=== PATIENT | male | born 1950 | race Caucasian/White ===

== ENCOUNTER → 2016-04-20 | Outpatient (CLI) | payer MEDICARE, OTHER ==
[~2016-04-20] VITALS: Ht 185.4 cm; Wt 122.5 kg
[~2016-04-20] MED LIST: ALEV220C2 PO; FLEX10TA2 PO; LIDOCAINE 2% INJ 100 MG/5 ML SDV (FOR ANES.) As Ordered ONE; NS 1,000 ML IV SCH; PERCOCET PO; PRAV10TA PO; PREV30CA6 PO; PROPOFOL 200 MG/20 ML VIAL As Ordered ONE; REST0.05 OU
--- NOTE | 2016-04-20 12:51 | ROOR ---
Patient Name: Jose Lo Procedure Date: 04/20/2016 12:41 PM Date of : 1950 Age: 66 Room: [facility] Gender: Male Note Status: Finalized Procedure: Upper GI endoscopy Indications: Heartburn Providers: Nestor Hickey MD Referring MD: Carlton Romeo MD Requesting Provider: Medicines: Monitored Anesthesia Care Complications: No immediate complications. Procedure: Pre-Anesthesia Assessment: - The heart rate, respiratory rate, oxygen saturations, blood pressure, adequacy of pulmonary ventilation, and response to care were monitored throughout the procedure. The Endoscope was introduced through the mouth, and advanced to the second part of duodenum. The upper GI endoscopy was accomplished without difficulty. The patient tolerated the procedure well. Findings: The Z-line was regular and was found 41 cm from the incisors. A small hiatal hernia was present. No other significant abnormalities were identified in a careful examination of the stomach. The exam of the duodenum was otherwise normal. Impression: - Z-line regular, 41 cm from the incisors. - Small hiatal hernia. - No specimens collected. Recommendation: - Patient has a contact number available for emergencies. The signs and symptoms of potential delayed complications were discussed with the patient. Return to normal activities tomorrow. Written discharge instructions were provided to the patient. - Discharge patient to home. - Continue present medications. - Follow an antireflux regimen. - Return to referring physician. - The findings and recommendations were discussed with the patient's family. Nestor Hickey MD Nestor Hickey MD 04/20/2016 12:50:44 PM This report has been signed electronically. Number of Addenda: 0 Note Initiated On: 04/20/2016 12:41 PM Estimated Blood Loss: Estimated blood loss: none.
--- NOTE | 2016-04-20 13:27 | ROOR ---
Patient Name: Jose Lo Procedure Date: 04/20/2016 12:42 PM Date of : 1950 Age: 66 Room: [facility] Gender: Male Note Status: Finalized Procedure: Colonoscopy to Cecum + Hot Snare Polypectomy + Hemoclips Indications: Screening for colorectal malignant neoplasm, Last colonoscopy: 2005 Providers: Nestor Hickey MD Referring MD: Carlton Romeo MD Requesting Provider: Medicines: Monitored Anesthesia Care Complications: No immediate complications. Procedure: Pre-Anesthesia Assessment: - The heart rate, respiratory rate, oxygen saturations, blood pressure, adequacy of pulmonary ventilation, and response to care were monitored throughout the procedure. The Colonoscope was introduced through the anus and advanced to the cecum, identified by appendiceal orifice and ileocecal valve. The colonoscopy was performed without difficulty. The patient tolerated the procedure well. The quality of the bowel preparation was excellent. Findings: The perianal and digital rectal examinations were normal. Non-bleeding internal hemorrhoids were found during retroflexion. The hemorrhoids were small and Grade I (internal hemorrhoids that do not prolapse). A medium polyp was found at 10 cm proximal to the anus. The polyp was pedunculated. The polyp was removed with a hot snare. Resection and retrieval were complete. Two sessile polyps were found in the mid ascending colon. The polyps were large in size. These polyps were removed with a hot snare. Resection and retrieval were complete. To prevent bleeding after the polypectomy, six hemostatic clips were successfully placed (MR conditional). There was no bleeding at the end of the procedure. The exam was otherwise without abnormality on direct and retroflexion views. Impression: - Non-bleeding internal hemorrhoids. - One medium polyp at 10 cm proximal to the anus, removed with a hot snare. Resected and retrieved. - Two large polyps in the mid ascending colon, removed with a hot snare. Resected and retrieved. Clips (MR conditional) were placed. - The examination was otherwise normal on direct and retroflexion views. - The exam was otherwise normal to the cecum. Recommendation: - Patient has a contact number available for emergencies. The signs and symptoms of potential delayed complications were discussed with the patient. Return to normal activities tomorrow. Written discharge instructions were provided to the patient. - Discharge patient to home. - Continue present medications. - Await pathology results. - Telephone GI clinic for pathology results in 1 week. - Repeat colonoscopy for surveillance based on pathology results. - Return to referring physician. - The findings and recommendations were discussed with the patient's family. Nestor Hickey MD Nestor Hickey MD 04/20/2016 1:27:16 PM This report has been signed electronically. Number of Addenda: 0 Note Initiated On: 04/20/2016 12:42 PM Estimated Blood Loss: Estimated blood loss: none.
[2016-04-20 13:48] VITALS: BP 129/76
== END ==
LOC: M OPP 11:24
PROVIDERS: ATTEND Internal Medicine Gastroenterology
DX: Z12.11 Encounter for screening for malignant neoplasm of colon (principal); K64.0 First degree hemorrhoids; D12.2 Benign neoplasm of ascending colon; R12 Heartburn; K44.9 Diaphragmatic hernia without obstruction or gangrene

== ENCOUNTER → 2016-05-11 | Outpatient (REF) | payer MEDICARE, OTHER ==
[~2016-05-11] MED LIST changes: -LIDOCAINE 2% INJ 100 MG/5 ML SDV (FOR ANES.) As Ordered ONE; -NS 1,000 ML IV SCH; -PROPOFOL 200 MG/20 ML VIAL As Ordered ONE
[2016-05-13 00:06] LABS: FREE KAPPA LIGHT CHAINS SERUM 640.61 mg/L (3.30-19.40); FREE LAMBDA LIGHT CHAINS SERUM 9.62 mg/L (5.71-26.30); KAPPA/LAMBDA RATIO SERUM 66.59 (0.26-1.65)
[2016-05-14 13:08] LABS: ALBUMIN 3.97 GM/DL (3.29-5.55); ALBUMIN % 56.7 % (55.8-66.1); GAMMA GLOBULIN % 8.9 % (11.1-18.8)
== END ==
LOC: M LAB REF 12:58
PROVIDERS: ATTEND Internal Medicine Medical Oncology
DX: D47.2 Monoclonal gammopathy (principal)

== ENCOUNTER → 2016-11-23 | Outpatient (REF) | payer MEDICARE, OTHER ==
[~2016-11-23] MED LIST changes: -PRAV10TA PO; +PRAV10TA4 PO
[2016-11-23 19:50] LABS: IMMUNOGLOBULIN G 628 MG/DL (681-1648); IMMUNOGLOBULIN M 106 MG/DL (40-230); TOTAL PROTEIN 6.9 GM/DL (6.4-8.2)
[2016-11-26 00:07] LABS: FREE LAMBDA LIGHT CHAINS SERUM 9.4 mg/L (5.7-26.3); KAPPA/LAMBDA RATIO SERUM 43.09 (0.26-1.65)
[2016-11-26 13:24] LABS: ALBUMIN 3.94 GM/DL (3.29-5.55); ALBUMIN % 57.1 % (55.8-66.1); GAMMA GLOBULIN % 8.7 % (11.1-18.8)
== END ==
LOC: M LAB REF 16:23
PROVIDERS: ATTEND Internal Medicine Medical Oncology
DX: C91.40 Hairy cell leukemia not having achieved remission (principal); D47.2 Monoclonal gammopathy

== ENCOUNTER → 2017-01-04 | Outpatient (CLI) | payer MEDICARE, OTHER ==
--- NOTE | 2017-01-04 10:36 | REP ---
PA and lateral chest: There are no comparisons. The lung wells are clear. The cardiac size is normal The bev, mediastinum, and bony thorax are unremarkable. Impression: Negative PA and lateral chest. Signed by Dwayne Hernandez MD 01/04/2017 10:28 A
== END ==
LOC: M ADAMS 10:14
PROVIDERS: ATTEND Physician Assistant
DX: R05 Cough (principal); J20.9 Acute bronchitis, unspecified

== ENCOUNTER → 2017-05-24 | Outpatient (REF) | payer MEDICARE, OTHER ==
[2017-05-24 17:48] LABS: URINE TOTAL PROTEIN 12.7 MG/DL (0-12)
[2017-05-24 17:56] LABS: IMMUNOGLOBULIN G 670 MG/DL (681-1648); IMMUNOGLOBULIN M 118 MG/DL (40-230); TOTAL PROTEIN 7.1 GM/DL (6.4-8.2)
[2017-05-25 08:54] LABS: ALBUMIN 4.08 GM/DL (3.29-5.55); ALBUMIN % 57.5 % (55.8-66.1); ALPHA-1-GLOBULIN % 3.8 % (2.9-4.9); ALPHA-1-GLOBULINS 0.27 GM/DL (0.17-0.41); ALPHA-2-GLOBULINS 0.55 GM/DL (0.42-0.99); ALPHA-2-GLOBULINS % 7.7 % (7.1-11.8); BETA-1-GLOBULINS 0.39 GM/DL (0.28-0.60); BETA-1-GLOBULINS % 5.5 % (4.7-7.2); BETA-2-GLOBULINS 1.22 GM/DL (0.19-0.55); BETA-2-GLOBULINS % 17.2 % (3.2-6.5); GAMMA GLOBULIN % 8.3 % (11.1-18.8); GAMMA GLOBULINS 0.59 GM/DL (0.65-1.58)
[2017-05-27 00:06] LABS: FREE KAPPA LIGHT CHAINS SERUM 424.5 mg/L (3.3-19.4); FREE LAMBDA LIGHT CHAINS SERUM 6.8 mg/L (5.7-26.3); KAPPA/LAMBDA RATIO SERUM 62.43 (0.26-1.65)
== END ==
LOC: M LAB REF 16:33
DX: D47.2 Monoclonal gammopathy (principal); M10.9 Gout, unspecified; E78.5 Hyperlipidemia, unspecified
CPT/HCPCS: 84165

== ENCOUNTER → 2017-05-24 | Outpatient (REF) | payer MEDICARE, OTHER ==
[2017-05-24 18:56] LABS: URIC ACID 6.9 MG/DL (3.5-7.2)
== END ==
LOC: M LAB REF 17:26
DX: M10.9 Gout, unspecified (principal); E78.5 Hyperlipidemia, unspecified

== ENCOUNTER 2017-06-09 07:56 | Day surgery (SDC) | payer MEDICARE, OTHER ==
[~2017-06-09 07:56] MED LIST changes: -ALEV220C2 PO; -FLEX10TA2 PO; +LIDOCAINE 2% INJ 100 MG/5 ML SDV (FOR ANES.) As Ordered; -PERCOCET PO; -PRAV10TA4 PO; -PREV30CA6 PO; +PROPOFOL 200 MG/20 ML VIAL As Ordered; -REST0.05 OU
[2017-06-09] MEDS: NS 1,000 ML IV (08:15)
[2017-06-09] MEDS ORDERED: PROPOFOL 200 MG/20 ML VIAL As Ordered (09:27)
== END 2017-06-09 10:35 | disposition home or self-care (01) ==
LOC: M OPP 07:56
DX: D12.9 Benign neoplasm of anus and anal canal (principal); D12.3 Benign neoplasm of transverse colon; D12.2 Benign neoplasm of ascending colon; Z86.010 Personal history of colon polyps; G47.33 Obstructive sleep apnea (adult) (pediatric); E78.00 Pure hypercholesterolemia, unspecified; K21.9 Gastro-esophageal reflux disease without esophagitis; Z79.899 Other long term (current) drug therapy; Z85.6 Personal history of leukemia; Z87.81 Personal history of (healed) traumatic fracture; Z09 Encounter for follow-up examination after completed treatment for conditions other than malignant neoplasm
CPT/HCPCS: 45385

== ENCOUNTER → 2017-08-31 | Outpatient (REF) | payer MEDICARE, OTHER, BC ==
[2017-08-31 13:44] LABS: IMMUNOGLOBULIN G 746 MG/DL (681-1648); IMMUNOGLOBULIN M 115 MG/DL (40-230); TOTAL PROTEIN 7.2 GM/DL (6.4-8.2)
[2017-08-31 13:47] LABS: URINE TOTAL PROTEIN 14.8 MG/DL (0-12)
[2017-09-01 13:24] LABS: ALBUMIN % 57.4 % (55.8-66.1); ALPHA-1-GLOBULIN % 3.4 % (2.9-4.9)
[2017-09-01 13:25] LABS: ALBUMIN 4.13 GM/DL (3.29-5.55); ALPHA-1-GLOBULINS 0.24 GM/DL (0.17-0.41); ALPHA-2-GLOBULINS 0.56 GM/DL (0.42-0.99); ALPHA-2-GLOBULINS % 7.8 % (7.1-11.8); BETA-1-GLOBULINS % 5.5 % (4.7-7.2); BETA-2-GLOBULINS 1.24 GM/DL (0.19-0.55); BETA-2-GLOBULINS % 17.2 % (3.2-6.5); GAMMA GLOBULIN % 8.7 % (11.1-18.8); GAMMA GLOBULINS 0.63 GM/DL (0.65-1.58)
[2017-09-02 13:00] LABS: UPEP INTERPRETATION M-SPIKE IN GAMMA; URINE VOLUME RANDOM ML
[2017-09-03 00:06] LABS: FREE KAPPA LIGHT CHAINS SERUM 469.5 mg/L (3.3-19.4); FREE LAMBDA LIGHT CHAINS SERUM 8.3 mg/L (5.7-26.3); KAPPA/LAMBDA RATIO SERUM 56.57 (0.26-1.65)
== END ==
LOC: M LAB REF 12:58
DX: C91.00 Acute lymphoblastic leukemia not having achieved remission (principal); D47.2 Monoclonal gammopathy
CPT/HCPCS: 84165

== ENCOUNTER → 2017-08-31 | Outpatient (REF) | payer MEDICARE, OTHER, BC ==
[2017-08-31 10:21] LABS: URINE TOTAL PROTEIN 9.8 MG/DL (0-12)
[2017-09-02 12:59] LABS: UPEP INTERPRETATION M-SPIKE IN GAMMA; URINE VOLUME 2250 ML
== END ==
LOC: M LAB REF 09:38
DX: D47.2 Monoclonal gammopathy (principal)

== ENCOUNTER 2018-02-23 11:44 | Emergency (ER) | payer OTHER, MEDICARE, BC | END 2018-02-23 12:45 | disposition home or self-care (01) | LOC: M ED 11:44 | DX: S63.642A Sprain of metacarpophalangeal joint of left thumb, initial encounter (principal); M19.042 Primary osteoarthritis, left hand; X50.1XXA Overexertion from prolonged static or awkward postures, initial encounter; Y92.89 Other specified places as the place of occurrence of the external cause; Y99.0 Civilian activity done for income or pay; M54.9 Dorsalgia, unspecified; K21.9 Gastro-esophageal reflux disease without esophagitis; Z79.899 Other long term (current) drug therapy | CPT/HCPCS: 73140 ==

== ENCOUNTER → 2019-04-03 | Outpatient (CLI) | payer MEDICARE, OTHER ==
[~2019-04-03] MED LIST changes: +ALEV220C2 PO; +CELE1CAP7 PO; +FLEX10TA2 PO; +LANS30CA; -LIDOCAINE 2% INJ 100 MG/5 ML SDV (FOR ANES.) As Ordered; +MULT1TAB10 PO; +OXYC1TAB23 PO; +PRAV10TA4 PO; +PREV30CA6 PO; -PROPOFOL 200 MG/20 ML VIAL As Ordered; +REST0.05 OP; +REST0.05 OU
--- NOTE | 2019-04-03 16:01 | REP ---
Pelvis survey: Comparison is 01/25/2014. AP and lateral skull: There are no lytic or destructive lesions. Next Cervical spine AP and lateral views: There are no lytic or destructive lesions. The small lucent lesion suspected on the prior study is no longer identified on the current examination. There is multilevel degenerative disc disease and facet osteoarthritis. Thoracic spine AP and lateral views: There are no lytic or destructive lesions. There is degenerative disc disease throughout the thoracic spine. Lumbar spine AP and lateral views: There are no lytic or destructive changes. There is grade 1 compression deformity of the L3 vertebral body, unchanged. There is mild to moderate degenerative disc disease throughout the lumbar spine, unchanged. AP pelvis: There are no lytic or destructive changes. The sacroiliac articulations and hip articulations are unremarkable. There are phleboliths on the left. Bilateral humeri: There are no lytic or destructive changes. Mineralization is normal. Bilateral semi: There are no lytic or destructive changes. Mineralization is normal. Electronically Signed by Dwayne Hernandez MD 04/03/2019 03:52 P
== END ==
LOC: M RAD 13:01
PROVIDERS: ATTEND Internal Medicine Hematology & Oncology
DX: C95.90 Leukemia, unspecified not having achieved remission (principal)

== ENCOUNTER → 2019-04-14 | Outpatient (REF) | payer MEDICARE, OTHER ==
[2019-04-14 11:37] LABS: CHOLESTEROL RISK RATIO 3.422 (<5); PROSTATIC SPECIFIC AG MONITOR 6.66 NG/ML (< 4.00); URIC ACID 7.5 MG/DL (3.5-7.2)
== END ==
LOC: M LAB REF 10:14
PROVIDERS: ATTEND Family Medicine
DX: E78.5 Hyperlipidemia, unspecified (principal); N40.1 Benign prostatic hyperplasia with lower urinary tract symptoms; M10.9 Gout, unspecified

== ENCOUNTER → 2019-04-21 | Outpatient (CLI) | payer MEDICARE, OTHER ==
--- NOTE | 2019-04-21 09:02 | REP ---
Clinical: Erythrocyte ptosis. Technique: Real time hoover scale and color evaluation using curved array transducer. Findings: Liver is increased echogenicity with decreased through transmission suggesting fatty infiltration. No focal hepatic lesion identified. The pancreas is incompletely evaluated due to interposed bowel gas but visualized portions appear normal. The spleen demonstrates few parenchymal calcifications and measures 11.2 x 5.3 x 10.3 cm, but without significant focal pathology. Evidence of prior cholecystectomy. No biliary ductal dilatation is appreciated and the common bile duct measures 4.7 mm diameter. The bilateral kidneys are normal in reniform shape without hydronephrosis. Right kidney measures 12.2 x 6.1 x 6.3 cm. Left kidney measures 12.0 x 7.6 x 6.4 cm. No ascites. Impression: 1. Hepatic steatosis. 2. Evidence of prior cholecystectomy. 3. No further acute abdominal pathology by ultrasound evaluation. Electronically Signed by Franklyn Herrera MD 04/21/2019 08:54 A
== END ==
LOC: M RAD 08:11
PROVIDERS: ATTEND Internal Medicine Hematology & Oncology
DX: C91.40 Hairy cell leukemia not having achieved remission (principal)

== ENCOUNTER → 2019-04-26 | Outpatient (CLI) | payer MEDICARE, OTHER ==
[~2019-04-26] MED LIST changes: +TAMS1CAP17 PO
--- NOTE | 2019-04-26 11:34 | REP ---
Whole body radionuclide bone scan: History: Hairy-cell leukemia. Evaluation. Elevated alkaline phosphatase. Comparison bone survey April 03, 2019. Technique: 21.9 mCi technetium 99m MDP is injected and standard whole body bone scanning is acquired. Scintigraphic findings: Anterior and posterior whole body images demonstrate normal distribution of skeletal tracer with uptake in bilateral kidneys and in the urinary bladder. There is osteoarthritic facet uptake in the mid cervical spine on the right corresponding with facet hypertrophy seen radiographically at this level. There is no evidence to suggest skeletal metastatic disease. Impression: Negative radionuclide whole-body bone scan. Electronically Signed by Abner Sales MD 04/26/2019 04:25 P
== END ==
LOC: M RAD 07:35
PROVIDERS: ATTEND Internal Medicine Hematology & Oncology
DX: C91.40 Hairy cell leukemia not having achieved remission (principal)
CPT/HCPCS: 78306; A9503

== ENCOUNTER → 2019-08-03 | Outpatient (REF) | payer MEDICARE, OTHER ==
[2019-08-03 15:24] LABS: BASO % 0.7 % (0.0-1.0); EOS # 0.2 10^3/uL (0.0-0.5); EOS % 3.5 % (0.0-3.0); HEMATOCRIT 50.5 % (42.0-52.0); HEMOGLOBIN 16.9 g/dl (13.5-17.5); LYMPH # 2.1 10^3/uL (1.5-5.0); LYMPH % 36.5 % (24.0-44.0); MEAN CORPUSCULAR HEMOGLOBIN 32.6 pg (27.0-33.0); MEAN CORPUSCULAR HGB CONC 33.5 g/dl (32.0-36.5); MEAN CORPUSCULAR VOLUME 97.3 fl (80.0-96.0); MONO # 0.7 10^3/uL (0.0-0.8); MONO % 11.6 % (0.0-5.0); NEUTROPHILS # 2.7 10^3/uL (1.5-8.5); NEUTROPHILS % 47.5 % (36.0-66.0); PLATELET COUNT, AUTOMATED 108 10^3/uL (150-450); RED BLOOD COUNT 5.19 10^6/uL (4.30-6.10); WHITE BLOOD COUNT 5.8 10^3/uL (4.0-10.0)
[2019-08-03 16:01] LABS: THYROID STIMULATING HORMONE 0.779 uIU/ML (0.358-3.740); TOTAL PROTEIN 6.8 GM/DL (6.4-8.2)
[2019-08-04 16:08] LABS: FREE KAPPA LIGHT CHAINS SERUM 453.3 mg/L (3.3-19.4); FREE LAMBDA LIGHT CHAINS SERUM 6.4 mg/L (5.7-26.3); KAPPA/LAMBDA RATIO SERUM 70.83 (0.26-1.65)
== END ==
LOC: M LABDRWAD 12:47
PROVIDERS: ATTEND Internal Medicine Hematology & Oncology
DX: E21.5 Disorder of parathyroid gland, unspecified (principal); Z79.899 Other long term (current) drug therapy

== ENCOUNTER → 2020-02-06 | Outpatient (REF) | payer MEDICARE, OTHER ==
[~2020-02-06] MED LIST changes: +D31000TA2 PO
[2020-02-06 11:42] LABS: ALBUMIN 3.6 GM/DL (3.2-5.2); ALT/SGPT 21 U/L (12-78); BILIRUBIN,TOTAL 0.8 MG/DL (0.2-1.0); BLOOD UREA NITROGEN 18 MG/DL (7-18); CALCIUM LEVEL 9.3 MG/DL (8.8-10.2); CARBON DIOXIDE LEVEL 28 MEQ/L (21-32); CHLORIDE LEVEL 107 MEQ/L (98-107); CHOLESTEROL LEVEL 133 MG/DL (<200); CHOLESTEROL RISK RATIO 2.607 (<5); CREATININE FOR GFR 1.19 MG/DL (0.70-1.30); GLOMERULAR FILTRATION RATE > 60.0 (>49); GLUCOSE, FASTING 100 MG/DL (70-100); HDL CHOLESTEROL 51 MG/DL (>40); LDL CHOLESTEROL 67 MG/DL (<100); NON-HDL-C 82 MG/DL; POTASSIUM SERUM 4.1 MEQ/L (3.5-5.1); PROSTATIC SPECIFIC AG MONITOR 6.73 NG/ML (< 4.00); SODIUM LEVEL 140 MEQ/L (136-145); TOTAL PROTEIN 6.8 GM/DL (6.4-8.2); TRIGLYCERIDES LEVEL 75 MG/DL (<150); URIC ACID 7.5 MG/DL (3.5-7.2)
[2020-02-06 11:46] LABS: PTH INTACT 91.8 PG/ML (18.5-88.0)
== END ==
LOC: M LAB REF 10:52
PROVIDERS: ATTEND Family Medicine
DX: E83.52 Hypercalcemia (principal); R97.20 Elevated prostate specific antigen [PSA]; E78.5 Hyperlipidemia, unspecified; M10.9 Gout, unspecified

== ENCOUNTER → 2020-08-02 | Outpatient (CLI) | payer MEDICARE, OTHER ==
[~2020-08-02] MED LIST changes: -LANS30CA; +LANS30CA PO; +PRAV10TA3
== END ==
LOC: M LABSMTC 11:21
PROVIDERS: ATTEND Anesthesiology
DX: Z01.812 Encounter for preprocedural laboratory examination (principal); Z11.52 Encounter for screening for COVID-19

== ENCOUNTER 2020-08-07 08:57 | Day surgery (SDC) | payer MEDICARE, OTHER ==
[~2020-08-07] VITALS: Ht 185.4 cm; Wt 113.4 kg
[~2020-08-07 08:57] MED LIST changes: +NS 1,000 ML IV ONE
[2020-08-07] MEDS ORDERED: LIDOCAINE 2% 100MG/5ML SDV (FOR ANES.) As Ordered ONE (11:43)
[2020-08-07] MEDS ORDERED: propofoL 200 MG/20 ML VIAL As Ordered ONE ×2 (11:43→12:03)
[2020-08-07] MEDS ORDERED: fentaNYL 100 MCG/2 ML INJECTION (J3010) As Ordered ONE (11:43)
--- NOTE | 2020-08-07 12:04 | ROOR ---
Patient Name: Jose Lo Procedure Date: 08/07/2020 11:52 AM Date of : 1950 Age: 70 Room: [facility] Gender: Male Note Status: Finalized Procedure: Upper Endoscopy + Biopsies Indications: Heartburn, Exclusion of Perez's esophagus Providers: Nestor Hickey MD Referring MD: Carlton Romeo MD Requesting Provider: Medicines: Monitored Anesthesia Care Complications: No immediate complications. Procedure: Pre-Anesthesia Assessment: - The heart rate, respiratory rate, oxygen saturations, blood pressure, adequacy of pulmonary ventilation, and response to care were monitored throughout the procedure. The Endoscope was introduced through the mouth, and advanced to the second part of duodenum. The upper GI endoscopy was accomplished without difficulty. The patient tolerated the procedure well. Findings: The Z-line was regular and was found 45 cm from the incisors. Multiple biopsies were obtained with cold forceps for evaluation to rule out Perez's Esophagus randomly at the gastroesophageal junction. No other significant abnormalities were identified in a careful examination of the stomach. The exam of the duodenum was otherwise normal. Impression: - Z-line regular, 45 cm from the incisors. - Multiple biopsies were obtained at the gastroesophageal junction. - The examination was otherwise normal. Recommendation: - Patient has a contact number available for emergencies. The signs and symptoms of potential delayed complications were discussed with the patient. Return to normal activities tomorrow. Written discharge instructions were provided to the patient. - High fiber diet. - Discharge patient to home. - Follow an antireflux regimen. - Continue present medications. - Await pathology results. - Telephone GI clinic for pathology results in 1 week. - Return to referring physician. - The findings and recommendations were discussed with the patient's family. Procedure Code(s): --- Professional --- 64158, Esophagogastroduodenoscopy, flexible, transoral; with biopsy, single or multiple Diagnosis Code(s): --- Professional --- R12, Heartburn CPT copyright 2019 [employer]. All rights reserved. The codes documented in this report are preliminary and upon venetian blind maker review may be revised to meet current compliance requirements. Nestor Hickey MD Nestor Hickey MD 08/07/2020 12:04:40 PM Electronically signed by Nestor Hickey MD Number of Addenda: 0 Note Initiated On: 08/07/2020 11:52 AM Estimated Blood Loss: Estimated blood loss: none.
--- NOTE | 2020-08-07 12:17 | ROOR ---
Patient Name: Jose Lo Procedure Date: 08/07/2020 11:52 AM Date of : 1950 Age: 70 Room: [facility] Gender: Male Note Status: Finalized Procedure: Total Colonoscopy to Cecum Indications: High risk colon cancer surveillance: Personal history of colonic polyps, Last colonoscopy: 2017 Providers: Nestor Hickey MD Referring MD: Carlton Romeo MD Requesting Provider: Medicines: Monitored Anesthesia Care Complications: No immediate complications. Procedure: Pre-Anesthesia Assessment: - The heart rate, respiratory rate, oxygen saturations, blood pressure, adequacy of pulmonary ventilation, and response to care were monitored throughout the procedure. The Colonoscope was introduced through the anus and advanced to the cecum, identified by appendiceal orifice and ileocecal valve. The colonoscopy was performed without difficulty. The patient tolerated the procedure well. The quality of the bowel preparation was excellent. Findings: The perianal and digital rectal examinations were normal. No other significant abnormalities were identified in a careful examination of the remainder of the colon. The exam was otherwise without abnormality. Impression: - The examination was otherwise normal. - No specimens collected. - The exam was otherwise normal to the cecum. Recommendation: - Patient has a contact number available for emergencies. The signs and symptoms of potential delayed complications were discussed with the patient. Return to normal activities tomorrow. Written discharge instructions were provided to the patient. - High fiber diet. - Discharge patient to home. - Continue present medications. - Repeat colonoscopy in 5 years for surveillance. - Return to referring physician. - The findings and recommendations were discussed with the patient's family. Procedure Code(s): --- Professional --- G0105, Colorectal cancer screening; colonoscopy on individual at high risk Diagnosis Code(s): --- Professional --- Z86.010, Personal history of colonic polyps CPT copyright 2019 [employer]. All rights reserved. The codes documented in this report are preliminary and upon coding technician review may be revised to meet current compliance requirements. Nestor Hickey MD Nestor Hickey MD 08/07/2020 12:16:23 PM Electronically signed by Nestor Hickey MD Number of Addenda: 0 Note Initiated On: 08/07/2020 11:52 AM Estimated Blood Loss: Estimated blood loss: none.
[2020-08-07 12:40] VITALS: BP 116/71
== END 2020-08-07 12:51 | disposition home or self-care (01) ==
LOC: M OPP 08:57
PROVIDERS: ATTEND Internal Medicine Gastroenterology
DX: Z12.11 Encounter for screening for malignant neoplasm of colon (principal); Z86.010 Personal history of colon polyps; R12 Heartburn; Z79.899 Other long term (current) drug therapy; Z88.0 Allergy status to penicillin
CPT/HCPCS: 43239; 88305; G0105; J3010

== ENCOUNTER → 2020-08-08 | Outpatient (REF) | payer MEDICARE, OTHER ==
[~2020-08-08] MED LIST changes: -NS 1,000 ML IV ONE
== END ==
LOC: M LAB REF 16:02
PROVIDERS: ATTEND Family Medicine
DX: R97.20 Elevated prostate specific antigen [PSA] (principal)

== ENCOUNTER → 2020-12-04 | Outpatient (REF) | payer MEDICARE, OTHER ==
[~2020-12-04] MED LIST changes: -REST0.05 OP
== END ==
LOC: M SMT PRO 09:33
PROVIDERS: ATTEND Urology
DX: C61 Malignant neoplasm of prostate (principal)
CPT/HCPCS: 55700; 76942; G0416

== ENCOUNTER → 2020-12-11 | Outpatient (REF) | payer MEDICARE, OTHER ==
[2020-12-11 16:36] LABS: CALCIUM LEVEL 10.3 MG/DL (8.8-10.2); CREATININE FOR GFR 1.39 MG/DL (0.70-1.30); GLOMERULAR FILTRATION RATE 53.8 (>42)
== END ==
LOC: M LABSMT 13:27 → M SFHCADAM 13:29
PROVIDERS: ATTEND Urology
DX: C61 Malignant neoplasm of prostate (principal)

== ENCOUNTER → 2021-01-06 | Outpatient (CLI) | payer MEDICARE, OTHER ==
[~2021-01-06] MED LIST changes: +ISOVUE-370 76% 100ML VIAL As Ordered ONE
--- NOTE | 2021-01-06 13:14 | REP ---
INDICATION: PROSTATE CA-NM FIRST. COMPARISON: 03/19/2010 TECHNIQUE: Bolus 100 mL Isovue 370 scanning through the abdomen and pelvis with coronal and sagittal reconstructions and 1 delayed axial abdominal scan. Bone windows are reviewed for each lies level. FINDINGS: CT abdomen: Lung bases show some minor dependent atelectatic changes without acute infiltrate, pleural effusion or parenchymal mass. Heart size not grossly enlarged. There is no pericardial thickening or effusion. Is a small hiatal hernia evident. There is no hepatosplenomegaly, focal hepatic or splenic mass nor intrahepatic biliary dilatation. Few tiny calcifications in the spleen again noted from old granulomatous disease. Gallbladder surgically absent. No calcifications visible in the common duct pancreas is unremarkable. Adrenal glands are without mass or significant nodularity. Kidneys show symmetric size, cortical thickness and contour no solid mass is identified. Tiny cyst seen in the lower pole left kidney not visible on the previous noncontrast scan. No definite renal stones. The aorta has few scattered calcifications but no aneurysm or dissection. There is no periaortic other retroperitoneal or mesenteric pathologic sized lymphadenopathy. Lung window review of all CT slices shows no evidence for perforation or free air in the abdomen or pelvis. No splenomegaly. Abdominal portion of the colon shows a few scattered diverticula without signs of colitis or diverticulitis. There is no inflammatory change about the cecum. Collecting systems and ureters without dilatation or stone. There is no ventral abdominal wall hernia. Stomach and small bowel loops unremarkable. Bone windows show some chronic at superior endplate depression of L3 stable. Lower thoracic and lumbar spondylosis noted. There is no spondylolysis or spondylolisthesis. Some facet arthropathy lower lumbar spine evident. Visualized ribs are without fracture or focal lesion. CT pelvis: The sacrum, pelvis and hips show some degenerative changes without destructive lesions or fractures peer bladder partially filled it with a small urachal remnant extending superiorly for a few cm but no urachal mass or definite bladder wall mass. Prostate is enlarged with a transverse diameter 6.1 cm and indenting the bladder base posteriorly. 10 years ago the diameter transverse was 4.8 cm. There is no ventral or inguinal hernia, pathologic sized inguinal adenopathy or pelvic lymphadenopathy. The distal left colon and sigmoid without acute finding. Small bowel loops in the deep pelvis unremarkable. IMPRESSION: 1. Enlarged prostate indenting bladder base with a maximum transverse diameter of the 6.1 cm. This is enlarged compared to the study 10 years ago which had a transverse diameter of 4.8 cm. Small urachal remnant anterior superior bladder without gross mass. Slight bladder wall thickening overall. 2. No discrete bony lesion. There are degenerative changes throughout the thoracic and lumbar spine and old, stable superior endplate depression L3. No acute bony finding. 3. Prior cholecystectomy. Solid organs in the upper abdomen without acute finding. No abdominal or pelvic lymphadenopathy, ventral or inguinal hernia or other acute finding. Few scattered diverticula in the colon without diverticulitis or colitis. <Electronically signed by Jose Maldonado > 01/06/21 1318
--- NOTE | 2021-01-06 13:57 | REP ---
INDICATION: PROSTATE CA-CT AFTER. COMPARISON: 04/26/2019. TECHNIQUE/RADIOTRACER AND DOSE: Following the intravenous administration of 22.0mCi technetium 99 M MDP, patient's whole-body is imaged in multiple projections. FINDINGS: There is mild arthritic uptake in the right cervical facet joints. There is mild arthritic uptake at the sternal clavicular joints. There is no compelling scintigraphic evidence of osseous metastases. Renal and bladder activity are seen. IMPRESSION: No significant change when compared to the prior study. No compelling scintigraphic evidence of osseous metastases. <Electronically signed by Dwayne Bustamante > 01/06/21 1334
== END ==
LOC: M RAD 09:51
PROVIDERS: ATTEND Urology
DX: C61 Malignant neoplasm of prostate (principal)
CPT/HCPCS: 74177; 78306; A9503; Q9967

== ENCOUNTER → 2021-02-10 | Outpatient (CLI) | payer MEDICARE, OTHER ==
[~2021-02-10] MED LIST changes: -ISOVUE-370 76% 100ML VIAL As Ordered ONE
--- NOTE | 2021-02-10 09:48 | REP ---
INDICATION: PROSTATE CANCER, PREOP TESTING. COMPARISON: PA and lateral chest, 01/04/2017. TECHNIQUE: Upright PA and lateral chest images were obtained. FINDINGS: The lungs are clear. The heart borders mediastinum and pulmonary vascular pattern are normal. The upper abdominal bowel gas pattern is normal. There is mild dextroscoliosis of the thoracic spine. IMPRESSION: No evidence of acute cardiopulmonary pathology. No significant change. <Electronically signed by Derek Sanchez > 02/10/21 0903
== END ==
LOC: M ADAMS 09:21
PROVIDERS: ATTEND Urology
DX: Z01.818 Encounter for other preprocedural examination (principal); C61 Malignant neoplasm of prostate

== ENCOUNTER → 2021-02-10 | Outpatient (REF) | payer MEDICARE, OTHER ==
[2021-02-10 14:42] LABS: HEMATOCRIT 49.9 % (42.0-52.0); HEMOGLOBIN 16.5 g/dl (13.5-17.5); MEAN CORPUSCULAR HEMOGLOBIN 31.9 pg (27.0-33.0); MEAN CORPUSCULAR HGB CONC 33.1 g/dl (32.0-36.5); MEAN CORPUSCULAR VOLUME 96.5 fl (80.0-96.0); PLATELET COUNT, AUTOMATED 126 10^3/uL (150-450); RED BLOOD COUNT 5.17 10^6/uL (4.30-6.10); WHITE BLOOD COUNT 7.2 10^3/uL (4.0-10.0)
[2021-02-10 14:51] LABS: INR 1.1; PROTHROMBIN TIME 14.6 SECONDS (12.7-14.5)
[2021-02-10 14:52] LABS: PARTIAL THROMBOPLASTIN TIME 29.6 SECONDS (25.9-37.0)
[2021-02-10 15:04] LABS: CALCIUM LEVEL 10.4 MG/DL (8.8-10.2); CREATININE FOR GFR 1.29 MG/DL (0.70-1.30); GLOMERULAR FILTRATION RATE 58.6 (>42); POTASSIUM SERUM 4.1 MEQ/L (3.5-5.1)
== END ==
LOC: M LABSMT 09:20 → M SFHCADAM 09:28
PROVIDERS: ATTEND Urology
DX: Z01.818 Encounter for other preprocedural examination (principal); C61 Malignant neoplasm of prostate; Z79.01 Long term (current) use of anticoagulants

== ENCOUNTER → 2021-02-25 | Outpatient (REF) | payer MEDICARE, OTHER ==
[2021-02-25 13:09] LABS: HEMATOCRIT 49.3 % (42.0-52.0); HEMOGLOBIN 16.4 g/dl (13.5-17.5); MEAN CORPUSCULAR HGB CONC 33.3 g/dl (32.0-36.5); MEAN CORPUSCULAR VOLUME 96.3 fl (80.0-96.0); PLATELET COUNT, AUTOMATED 107 10^3/uL (150-450); RED BLOOD COUNT 5.12 10^6/uL (4.30-6.10); WHITE BLOOD COUNT 5.9 10^3/uL (4.0-10.0)
[2021-02-25 13:37] LABS: INR 1.05; PROTHROMBIN TIME 14.2 SECONDS (12.7-14.5)
[2021-02-25 13:38] LABS: PARTIAL THROMBOPLASTIN TIME 30.1 SECONDS (25.9-37.0)
[2021-02-25 13:41] LABS: BLOOD UREA NITROGEN 20 MG/DL (7-18); CALCIUM LEVEL 10.3 MG/DL (8.8-10.2); CARBON DIOXIDE LEVEL 30 MEQ/L (21-32); CHLORIDE LEVEL 105 MEQ/L (98-107); CREATININE FOR GFR 1.24 MG/DL (0.70-1.30); GLOMERULAR FILTRATION RATE > 60.0 (>42); GLUCOSE, FASTING 104 MG/DL (70-100); POTASSIUM SERUM 3.9 MEQ/L (3.5-5.1); SODIUM LEVEL 141 MEQ/L (136-145)
== END ==
LOC: M LABDRWAD 12:28
PROVIDERS: ATTEND Urology
DX: Z01.818 Encounter for other preprocedural examination (principal); C61 Malignant neoplasm of prostate; N39.0 Urinary tract infection, site not specified; Z79.01 Long term (current) use of anticoagulants

== ENCOUNTER → 2021-03-03 | Outpatient (CLI) | payer MEDICARE, OTHER ==
[~2021-03-03] MED LIST changes: +BACT800T5 PO; +CIPR-249 PO; +COLA100C5 PO; +LEVO500T4; +MIRA3350 PO; +PERCOCET PO; +RA M1.74 PO
== END ==
LOC: M LABSMTC 09:23
PROVIDERS: ATTEND Anesthesiology
DX: Z01.818 Encounter for other preprocedural examination (principal); Z11.52 Encounter for screening for COVID-19

== ENCOUNTER 2021-03-05 09:59 | Inpatient (IN) | payer MEDICARE, OTHER ==
[~2021-03-05] VITALS: Ht 185.4 cm; Wt 115.2 kg
[~2021-03-05 09:59] MED LIST changes: -BACT800T5 PO; -CIPR-249 PO; -COLA100C5 PO; +HEPARIN SOD (PORCINE) 5000UNITS/ML 1ML VIAL/SYRINGE SQ ONE; -LEVO500T4; +LIDOCAINE 2% 100MG/5ML SDV (FOR ANES.) As Ordered ONE; +LR 1,000 ML IV ONE; +MIDAZOLAM INJ 2MG/2ML VIAL (J2250 PER 1MG) As Ordered ONE; -MIRA3350 PO; +ONDANSETRON 4MG/2ML VIAL As Ordered ONE; -PERCOCET PO; -RA M1.74 PO; +ROCURONIUM BROMIDE 50 MG/5 ML VIAL As Ordered ONE; +SUGAMMADEX SODIUM 500 MG/5 ML VIAL (BRIDION) As Ordered ONE; +ceFAZolin SOD 2 GM in IV 1 EA IV ONE; +dexameTHASONE 4 MG/ML 1ML VIAL (J1100 PER 1MG) As Ordered ONE; +fentaNYL 250 MCG/5 ML INJECTION (J3010) As Ordered ONE; +propofoL 200 MG/20 ML VIAL As Ordered ONE
[2021-03-05] MEDS ORDERED: LIDOCAINE 1% SDV 30ML VIAL As Ordered ONE (12:47)
[2021-03-05] MEDS ORDERED: BUPIVACAINE HCL 0.25% 30ML VIAL As Ordered ONE (12:47)
[2021-03-05] MEDS: NS 1,000 ML IV SCH (13:10)
[2021-03-05] MEDS ORDERED: PERCOCET 5MG/325MG TAB PO PRN (13:10)
[2021-03-05] MEDS ORDERED: ACETAMINOPHEN TAB 650MG DOSE (2X325MG) PO PRN (13:10)
[2021-03-05] MEDS: HEPARIN SOD (PORCINE) 5000UNITS/ML 1ML VIAL/SYRINGE SC SCH ×2 (13:10→21:03)
[2021-03-05] MEDS ORDERED: ONDANSETRON 4MG/2ML VIAL IV PRN ×2 (13:10→18:10)
[2021-03-05] MEDS ORDERED: ACETAMINOPHEN 1000MG 100ML IV BTL (OFIRMEV) (J0131 PER 10MG) As Ordered ONE (13:22)
[2021-03-05] MEDS ORDERED: ePHEDrine SULFATE 25 MG/5 ML(5MG/ML) SYRINGE As Ordered ONE (13:42)
[2021-03-05] MEDS ORDERED: PHENYLephrine 500MCG 5ML (100MCG/ML) SYRINGE As Ordered ONE (13:42)
[2021-03-05] MEDS ORDERED: ROCURONIUM BROMIDE 50 MG/5 ML VIAL As Ordered ONE ×2 (13:49→14:27)
[2021-03-05] MEDS ORDERED: HYDROmorphone HCL 2 MG/ML 1ML VIAL As Ordered ONE (14:59)
--- NOTE | 2021-03-05 17:44 | ROOPDOC ---
[facility] Report Of Operation Report of Operation DATE OF PROCEDURE: 03/05/21 PREPROCEDURE DIAGNOSES: Prostate Cancer. POSTPROCEDURE DIAGNOSES: Prostate Cancer. PROCEDURE: Robotic-assisted Laparoscopic Radical Prostatectomy with Bilateral Pelvic Lymph Node Dissection. SURGEON: Rasheed Butler MD SENIOR TECHNICAL EDITOR: Yakelin Langley NP ANESTHESIA: General. OPERATIVE INDICATIONS: This is a 70 year old male with intermediate risk clinical T1c Vincent 4+3 prostate cancer, here today for the above procedure for treatment. DESCRIPTION OF PROCEDURE: The patient was brought to the operating room and gen eral anesthesia was induced. Prophylactic antibiotics were infused. He was then placed in the supine position and prepped and draped in the usual sterile fashion. At this point, a Tamayo catheter was inserted into the bladder and the balloon was filled with 10 mL of sterile water. We then made a midline incision just above the umbilicus for an 8 mm port. A Veress needle was utilized to achieve pneumoperitoneum. Next, an 8 mm port was inserted into the incision and subsequently a camera was inserted. There were no injuries from the Veress needle or initial trocar placement. Then three robotic ports were placed in the usual configuration in line just below the level of the umbilicus. A 12 mm bilingual teacher assistant port was placed just lateral and at the level of the umbilicus. Once all the ports were placed, the robot was docked. Lysis of adhesions between the sigmoid colon and abdominal wall was then performed. Next, the bladder was then released from the anterior abdominal wall using electrocautery. Once the bladder was dropped, the fat overlying the prostate was cleared using electrocautery. The superficial dorsal vein was controlled with electrocautery. The endopelvic fascia was opened on both sides and the dorsal venous complex was cleared. Next, a #0 Vicryl [id number] stitch was placed around the dorsal venous complex. Once that was done, the bladder was opened and dissected away from the prostate. At this point, the prostate was lifted up. The vasa deferentia were identified in the midline. They were controlled with electrocautery and then transected. The seminal vesicles were also dissected off bilaterally. After carefully dissecting the prostate off the rectum using cold scissors, and ligating and transecting the pedicles, the prostate was only connected by the urethra. At this point, the dorsal venous complex was transected with electrocautery. The urethra was then opened and the catheter was withdrawn and the posterior urethra was transected, thus freeing the prostate. At this point, we checked for hemostasis and it did appear very good. Next, we performed bilateral pelvic lymph node dissection. This was done in a standard fashion. The limits of dissection were the iliac vein proximally, the obturator nerve distally, the pelvic sidewall laterally, and the bladder medially. All lymphatic tissue within these limits was removed. I performed the same procedure on both the right and left sides. Hemostasis was then obtained. The lymphatic packets were then placed in separate Endo Catch bags for future retrieval. Once hemostasis was confirmed, I then moved on to perform the vesicourethral anastomosis. The vesicourethral anastomosis was performed in running fashion using a Quill stitch. Once this was done, the final #20-Tajik Tamayo catheter wa s placed. The balloon was filled with 15 mL of sterile water. Upon completion of the vesicourethral anastomosis, it was tested by filling the bladder with sterile water. The anastomosis appeared to be watertight. At this point, the prostate and seminal vesicles were placed in an Endo Catch bag for future retrieval. The robot was then undocked. A Saul fascial closure device was utilized to place a #0 Vicryl suture between the fascia of the 12 mm bilingual teacher assistant port. At this point, a Kostas- Caputo drain was brought in through the left robotic port skin site and the drain was positioned anterior to the bladder. The drain was secured to the skin with #2-0 Ethilon suture. Next, all the remaining ports were removed and there did not appear to be any bleeding from any of the port sites. The prostate, as well as the lymphatic packets were then extracted from the camera port site after the skin was extended. The fascia in this incision was then closed with a running #0 Vicryl stitch. The previously placed #0 Vicryl free ties through the bilingual teacher assistant port were then tied down and all incisions were irrigated. Last, all of the incisions were closed with running subcuticular #4-0 Monocryl sutures. Local anesthesia was applied. Dermabond was then applied to the incisions. This marked the conclusion of the procedure. The patient was then awakened from anesthesia and transported to the recovery room in stable condition. ESTIMATED BLOOD LOSS: 200 mL. COMPLICATIONS: None. SPECIMENS: Prostate and seminal vesicles, right pelvic lymph nodes, left pelvic lymph nodes. PLAN: The patient will be admitted to the hospital postoperatively, and he will likely be discharged home within the next 1-2 days. RASHEED BUTLER MD Mar 05, 2021 13:19
[2021-03-05] MEDS ORDERED: HYDROMORPHONE HCL 0.5 MG/ 0.5 ML SYRINGE (J1170 PER 1) IV PRN (18:10)
[2021-03-05] MEDS ORDERED: oxyCODONE 5MG TAB PO PRN (18:10)
[2021-03-05] MEDS ORDERED: CALCIUM CHLORIDE 10% 1 GM/10 ML SYR IV SCH (18:10)
[2021-03-05] MEDS ORDERED: fentaNYL 100 MCG/2 ML INJECTION (J3010) IV PRN (18:10)
[2021-03-05] MEDS ORDERED: LR 1,000 ML IV SCH (18:10)
[2021-03-05 18:57] LABS: HEMATOCRIT 48.7 % (42.0-52.0); HEMOGLOBIN 16.4 g/dl (13.5-17.5); MEAN CORPUSCULAR HGB CONC 33.7 g/dl (32.0-36.5); MEAN CORPUSCULAR VOLUME 94.9 fl (80.0-96.0); PLATELET COUNT, AUTOMATED 120 10^3/uL (150-450); RED BLOOD COUNT 5.13 10^6/uL (4.30-6.10); WHITE BLOOD COUNT 10.2 10^3/uL (4.0-10.0)
[2021-03-05 19:00] VITALS: BP 151/76
[2021-03-05 19:14] LABS: CALCIUM LEVEL 9.4 MG/DL (8.8-10.2); CREATININE FOR GFR 1.62 MG/DL (0.70-1.30); GLOMERULAR FILTRATION RATE 45.1 (>42); POTASSIUM SERUM 4.2 MEQ/L (3.5-5.1)
[2021-03-05] MEDS: ceFAZolin SOD 1 GM in D5W MINI-BAG PLUS 50 ML IV SCH (20:59)
[2021-03-05] MEDS: DOCUSATE SODIUM 100MG CAPSULE PO SCH (21:03)
[2021-03-05 21:07] VITALS: BP 146/75
[2021-03-05] MEDS: PERCOCET 5MG/325MG TAB PO PRN (21:08)
[2021-03-05 22:00] VITALS: BP 139/68
[2021-03-05 23:03] VITALS: BP 144/74
[2021-03-06 02:00] VITALS: BP 113/65
[2021-03-06] MEDS: ceFAZolin SOD 1 GM in D5W MINI-BAG PLUS 50 ML IV SCH ×2 (04:48→12:28)
[2021-03-06] MEDS: HEPARIN SOD (PORCINE) 5000UNITS/ML 1ML VIAL/SYRINGE SC SCH ×2 (04:49→12:28)
[2021-03-06 06:00] VITALS: BP 126/66
[2021-03-06] MEDS: NS 1,000 ML IV SCH (06:03)
[2021-03-06 06:07] LABS: HEMATOCRIT 46.6 % (42.0-52.0); HEMOGLOBIN 15.4 g/dl (13.5-17.5); MEAN CORPUSCULAR HEMOGLOBIN 31.6 pg (27.0-33.0); MEAN CORPUSCULAR VOLUME 95.7 fl (80.0-96.0); PLATELET COUNT, AUTOMATED 119 10^3/uL (150-450); RED BLOOD COUNT 4.87 10^6/uL (4.30-6.10); WHITE BLOOD COUNT 11.9 10^3/uL (4.0-10.0)
[2021-03-06 06:30] LABS: CALCIUM LEVEL 8.9 MG/DL (8.8-10.2); CREATININE FOR GFR 1.41 MG/DL (0.70-1.30); GLOMERULAR FILTRATION RATE 52.9 (>42); POTASSIUM SERUM 4.3 MEQ/L (3.5-5.1)
[2021-03-06] MEDS: DOCUSATE SODIUM 100MG CAPSULE PO SCH (07:38)
[2021-03-06] MEDS: PERCOCET 5MG/325MG TAB PO PRN ×2 (07:39→13:15)
--- NOTE | 2021-03-06 07:57 | IPNPDOC ---
Subjective Review oF Systems Chief Complaint The patient is a 70-year-old male admitted with a reason for visit of Prostate Cancer. Events since Last Encounter No acute events o/n. Noting some difficulty w/ pain control but has not had any pain medication recently. No n/v. Tolerating diet. Has not ambulated yet. No f/c/ns. Objective Physical Examination General Exam: Alert, Cooperative, No Acute Distress ABDOMEN EXAM: Soft, Tenderness (mild), Other (incisions clean/dry/intact; NEAL w/ serosanguinous output) Skin Exam: Nl turgor and temperature Neuro Exam: Normal Speech Psych Exam: Mental status NL, Mood NL Other physical findings catheter draining clear yellow urine Vital Signs/I&O Vital Signs Date Time Temp Pulse Resp B/P (MAP) Pulse Ox O2 Delivery O2 Flow Rate FiO2 03/06/21 07:39 17 03/06/21 01:46 2.0 03/05/21 23:03 97.3 64 144/74 (97) 96 Nasal Cannula I&O- Last 24 Hours up to 6 AM 03/06/21 06:00 Intake Total 2660 ml Output Total 600 ml Balance 2060 ml Laboratory Data Labs 24H Laboratory Tests 2 03/05/21 10:30: Coronavirus (COVID-19)(PCR) NEGATIVE 03/05/21 18:37: Nucleated Red Blood Cells % (auto) 0.0, Anion Gap 7L, Glomerular Filtration Rate 45.1, Calcium Level 9.4 03/06/21 05:49: Nucleated Red Blood Cells % (auto) 0.0, Anion Gap 5L, Glomerular Filtration Rate 52.9, Calcium Level 8.9 CBC/BMP Laboratory Tests 03/05/21 18:37 03/06/21 05:49 Assessment/Plan Date Seen The patient was seen on 03/06/21. Patient Summary This is a 70 y/o M POD1 s/p RALP w/ BPLND. Hb 15.4. Cr 1.4. Good UOP. Normal NEAL output. Plan/VTE VTE Prophylaxis Ordered?: Yes VTE Exclusion Mechanical Proph: N/A:VTE Prophy Ordered VTE Exclusion Pharmacological: N/A:VTE Prophy Ordered Plan/Urinary Catheter Urinary Catheter: Other Catheter: (catheter to stay in for at least 7 days for healing of vesicourethral anastomosis) Plan - d/c IVF - percocet prn pain - continue home meds - strict I/Os - incentive spirometry - SCDs in bed - SQH - advance diet as tolerated - possible discharge home later today w/ catheter (will remove NEAL drain prior) RASHEED BUTLER MD Mar 06, 2021 07:57
[2021-03-06] MEDS ORDERED: PERCOCET PO (08:52)
[2021-03-06] MEDS ORDERED: COLA100C5 PO (08:52)
[2021-03-06] MEDS ORDERED: CIPR-249 PO (08:52)
[2021-03-06] MEDS ORDERED: PRAVASTATIN 10 MG TAB PO SCH (09:00)
[2021-03-06 10:00] VITALS: BP 126/67
[2021-03-06 14:00] VITALS: BP 127/67
--- NOTE | 2021-03-06 16:57 | DSES ---
DISCHARGE SUMMARY DATE OF ADMISSION: 03/05/2021 DATE OF DISCHARGE: 03/06/2021 ADMISSION DIAGNOSIS: Prostate cancer. DISCHARGE DIAGNOSIS: Prostate cancer. ADMITTING PHYSICIAN: Dr. Esau Perales DISCHARGE PHYSICIAN: Dr. Esau Perales PROCEDURE PERFORMED: Robotic-assisted laparoscopic radical prostatectomy with bilateral pelvic lymph node dissection 03/05/2021. HISTORY OF PRESENT ILLNESS: This is a 70-year-old male with intermediate-risk prostate cancer who underwent the above-listed procedure for treatment. He was admitted to the hospital postoperatively. HOSPITAL COURSE: The patient was admitted to the hospital after undergoing the above-listed procedure. He postoperative course was unremarkable. His labs remained within acceptable limits. His labs on postoperative day #1 were notable for a hemoglobin level which was stable at 15.4. His serum creatinine was trending down at 1.4. He had excellent urine output throughout his hospital stay and normal output from his Kostas-Caputo drain. On postoperative day #1 we got him ambulating, and he did so with minimal difficulty. He did have increased pain with ambulating, but this was to be expected. This was controlled with oral pain medication. His diet was advanced, and he tolerated a regular diet. By the afternoon of postoperative day #1 he was deemed ready for discharge home. His Kostas-Caputo drain was removed. He was discharged home with his catheter in place with the plan for him to followup at the urology clinic in approximately 1 week for catheter removal and to discuss pathology results. KHUSHI
== END 2021-03-06 15:55 | disposition home health service (06) | DRG 708 ==
LOC: M OR 11:38 → M MS5PR 18:56
PROVIDERS: ADMIT Urology; ATTEND Urology
PROC: 07BC4ZZ Excision of Pelvis Lymphatic, Percutaneous Endoscopic Approach (ICD-10-PCS; 2021-03-05)
PROC: 8E0W4CZ Robotic Assisted Procedure of Trunk Region, Percutaneous Endoscopic Approach (ICD-10-PCS; 2021-03-05)
PROC: 0VT04ZZ Resection of Prostate, Percutaneous Endoscopic Approach (ICD-10-PCS; principal; 2021-03-05 13:15)
DX: C61 Malignant neoplasm of prostate (principal); K21.9 Gastro-esophageal reflux disease without esophagitis; G47.33 Obstructive sleep apnea (adult) (pediatric); E55.9 Vitamin D deficiency, unspecified; Z20.822 Contact with and (suspected) exposure to COVID-19; Z79.899 Other long term (current) drug therapy

== ENCOUNTER 2021-03-12 14:32 | Emergency (ER) | payer MEDICARE, OTHER ==
[~2021-03-12] VITALS: Ht 185.4 cm; Wt 115.9 kg
[~2021-03-12 14:32] MED LIST changes: +CIPR-249 PO; +COLA100C5 PO; -HEPARIN SOD (PORCINE) 5000UNITS/ML 1ML VIAL/SYRINGE SQ ONE; -LIDOCAINE 2% 100MG/5ML SDV (FOR ANES.) As Ordered ONE; -LR 1,000 ML IV ONE; -MIDAZOLAM INJ 2MG/2ML VIAL (J2250 PER 1MG) As Ordered ONE; -ONDANSETRON 4MG/2ML VIAL As Ordered ONE; +PERCOCET PO; -ROCURONIUM BROMIDE 50 MG/5 ML VIAL As Ordered ONE; -SUGAMMADEX SODIUM 500 MG/5 ML VIAL (BRIDION) As Ordered ONE; -ceFAZolin SOD 2 GM in IV 1 EA IV ONE; -dexameTHASONE 4 MG/ML 1ML VIAL (J1100 PER 1MG) As Ordered ONE; -fentaNYL 250 MCG/5 ML INJECTION (J3010) As Ordered ONE; -propofoL 200 MG/20 ML VIAL As Ordered ONE
[2021-03-12] MEDS ORDERED: LEVO500T4 (14:52)
[2021-03-12] MEDS ORDERED: NS 1,000 ML IV ONE (16:45)
[2021-03-12] MEDS ORDERED: MAGNESIUM CITRATE 300 ML BTL PO ONE (16:45)
[2021-03-12] MEDS ORDERED: KETOROLAC 30 MG/ML 1ML VIAL IV ONE (16:45)
[2021-03-12] MEDS ORDERED: ONDANSETRON 4MG/2ML VIAL IV ONE ×2 (16:45→21:05)
[2021-03-12 18:02] LABS: C REACTIVE PROTEIN QUANTITATIV 1.3 MG/DL (0.00-0.30)
[2021-03-12 18:59] LABS: ERYTHROCYTE SEDIMENTATION RATE 33 mm/hr (0-20)
[2021-03-12 19:19] LABS: BASO % 0.3 % (0.0-1.0); EOS % 0.1 % (0.0-3.0); HEMATOCRIT 43.1 % (42.0-52.0); HEMOGLOBIN 14.7 g/dl (13.5-17.5); LYMPH # 1.2 10^3/uL (1.5-5.0); LYMPH % 10.8 % (24.0-44.0); MEAN CORPUSCULAR HEMOGLOBIN 31.9 pg (27.0-33.0); MEAN CORPUSCULAR HGB CONC 34.1 g/dl (32.0-36.5); MEAN CORPUSCULAR VOLUME 93.5 fl (80.0-96.0); MONO # 1.2 10^3/uL (0.0-0.8); MONO % 10.7 % (2.0-8.0); NEUTROPHILS # 8.7 10^3/uL (1.5-8.5); NEUTROPHILS % 77.5 % (36.0-66.0); PLATELET COUNT, AUTOMATED 135 10^3/uL (150-450); RED BLOOD COUNT 4.61 10^6/uL (4.30-6.10); WHITE BLOOD COUNT 11.2 10^3/uL (4.0-10.0)
[2021-03-12 19:30] LABS: ALBUMIN 3.1 GM/DL (3.2-5.2); BILIRUBIN,DIRECT 0.4 MG/DL (0.0-0.2); BILIRUBIN,TOTAL 0.8 MG/DL (0.2-1.0); CALCIUM LEVEL 9.8 MG/DL (8.8-10.2); CREATININE FOR GFR 2.35 MG/DL (0.70-1.30); GLOMERULAR FILTRATION RATE 29.3 (>42); POTASSIUM SERUM 4.3 MEQ/L (3.5-5.1); TOTAL PROTEIN 6.5 GM/DL (6.4-8.2)
[2021-03-12 23:38] LABS: AMORPHOUS SEDIMENT SMALL (NEGATIVE); APPEARANCE, URINE CLOUDY (CLEAR); BACTERIA, URINE AUTO 1+ (NEGATIVE); BILIRUBIN, URINE AUTO NEGATIVE (NEGATIVE); BLOOD, URINE BLOOD 3+ (NEGATIVE); CALCIUM OXALATE CRYSTALS SMALL; COLOR, URINE YELLOW (YELLOW); GLUCOSE, URINE (UA) AUTO NEGATIVE (NEGATIVE); KETONE, URINE AUTO NEGATIVE (NEGATIVE); LEUKOCYTE ESTERASE, URINE AUTO 1+ (NEGATIVE); MUCUS, URINE LARGE (NEGATIVE); NITRITE, URINE AUTO NEGATIVE (NEGATIVE); PROTEIN, URINE AUTO NEGATIVE (NEGATIVE); RBC, URINE AUTO 45 /HPF (0-3); SQUAMOUS EPITHELIAL CELL UR AU 1 /HPF (0-6); UROBILINOGEN, URINE AUTO 0.2 mg/dL (0.0-2.0); WBC, URINE AUTO 23 /HPF (0-3)
[2021-03-13] MEDS ORDERED: BACTRIM 160MG/800MG DS TAB PO ONE
[2021-03-13] MEDS ORDERED: BACT800T5 PO (00:02)
[2021-03-13] MEDS ORDERED: MIRA3350 PO (00:02)
[2021-03-13] MEDS ORDERED: RA M1.74 PO (00:02)
[2021-03-13 00:54] VITALS: BP 152/77
== END 2021-03-13 00:55 | disposition home or self-care (01) ==
LOC: M ED 14:32
DX: G89.18 Other acute postprocedural pain (principal); Z90.79 Acquired absence of other genital organ(s); K59.00 Constipation, unspecified; N39.0 Urinary tract infection, site not specified; N13.2 Hydronephrosis with renal and ureteral calculous obstruction; Z96.0 Presence of urogenital implants; M10.9 Gout, unspecified; K21.9 Gastro-esophageal reflux disease without esophagitis; G47.33 Obstructive sleep apnea (adult) (pediatric); N17.9 Acute kidney failure, unspecified; Z79.899 Other long term (current) drug therapy
CPT/HCPCS: 36415; 74176; 80048; 80076; 81001; 83605; 83690; 85025; 85652; 86140; 87086; 93041; 96361; 96374; 96375; 96376; 99284; J1885; J2405

== ENCOUNTER → 2021-03-13 | Outpatient (REF) | payer MEDICARE, OTHER ==
[~2021-03-13] MED LIST changes: +BACT800T5 PO; +LEVO500T4; +MIRA3350 PO; +RA M1.74 PO
[2021-03-13 13:39] LABS: CREATININE FOR GFR 1.84 MG/DL (0.70-1.30); GLOMERULAR FILTRATION RATE 38.9 (>42); POTASSIUM SERUM 4.4 MEQ/L (3.5-5.1)
== END ==
LOC: M LABDRWAD 12:48
PROVIDERS: ATTEND Urology
DX: N17.9 Acute kidney failure, unspecified (principal)

== ENCOUNTER → 2021-04-10 | Outpatient (REF) | payer MEDICARE, OTHER ==
[2021-04-10 13:19] LABS: BLOOD UREA NITROGEN 25 MG/DL (7-18); CARBON DIOXIDE LEVEL 29 MEQ/L (21-32); CHLORIDE LEVEL 109 MEQ/L (98-107); CREATININE FOR GFR 1.35 MG/DL (0.70-1.30); GLOMERULAR FILTRATION RATE 55.5 (>42); GLUCOSE, FASTING 95 MG/DL (70-100); POTASSIUM SERUM 4.1 MEQ/L (3.5-5.1); PROSTATIC SPECIFIC AG MONITOR < 0.01 NG/ML (< 4.00); SODIUM LEVEL 142 MEQ/L (136-145)
== END ==
LOC: M LABDRWAD 12:24 → M SMT 12:24
PROVIDERS: ATTEND Urology
DX: C61 Malignant neoplasm of prostate (principal); N17.9 Acute kidney failure, unspecified

== ENCOUNTER → 2021-07-21 | Outpatient (CLI) | payer MEDICARE, OTHER ==
[~2021-07-21] MED LIST changes: -D31000TA2 PO; +VITA100093 PO
[2021-07-21 10:15] LABS: HEMATOCRIT 46.3 % (42.0-52.0); HEMOGLOBIN 16.2 g/dl (13.5-17.5); MEAN CORPUSCULAR HEMOGLOBIN 32.7 pg (27.0-33.0); MEAN CORPUSCULAR VOLUME 93.5 fl (80.0-96.0); PLATELET COUNT, AUTOMATED 118 10^3/uL (150-450); RED BLOOD COUNT 4.95 10^6/uL (4.30-6.10); WHITE BLOOD COUNT 5.3 10^3/uL (4.0-10.0)
[2021-07-21 10:38] LABS: ALBUMIN 3.6 GM/DL (3.2-5.2); ALT/SGPT 24 U/L (12-78); BILIRUBIN,TOTAL 0.7 MG/DL (0.2-1.0); BLOOD UREA NITROGEN 19 MG/DL (7-18); CALCIUM LEVEL 9.9 MG/DL (8.8-10.2); CARBON DIOXIDE LEVEL 26 MEQ/L (21-32); CHLORIDE LEVEL 110 MEQ/L (98-107); CHOLESTEROL LEVEL 136 MG/DL (<200); CHOLESTEROL RISK RATIO 2.775 (<5); CREATININE FOR GFR 1.37 MG/DL (0.70-1.30); GLOMERULAR FILTRATION RATE 54.5 (>42); GLUCOSE, FASTING 114 MG/DL (70-100); HDL CHOLESTEROL 49 MG/DL (>40); LDL CHOLESTEROL 72 MG/DL (<100); NON-HDL-C 87 MG/DL; POTASSIUM SERUM 4.6 MEQ/L (3.5-5.1); PROSTATIC SPECIFIC AG MONITOR < 0.01 NG/ML (< 4.00); SODIUM LEVEL 143 MEQ/L (136-145); TOTAL PROTEIN 7.1 GM/DL (6.4-8.2); TRIGLYCERIDES LEVEL 74 MG/DL (<150); URIC ACID 7.6 MG/DL (3.5-7.2)
[2021-07-21 10:46] LABS: PTH INTACT 85.3 PG/ML (18.5-88.0); TOTAL 25(OH) VITAMIN D 51.2 NG/ML (30.0-100.0)
== END ==
LOC: M LAB 09:31
PROVIDERS: ATTEND Urology
DX: C61 Malignant neoplasm of prostate (principal); N17.9 Acute kidney failure, unspecified; Z79.899 Other long term (current) drug therapy

== ENCOUNTER → 2021-07-21 | Outpatient (REF) | payer MEDICARE, OTHER | LOC: M SFHCADAM 08:04 | PROVIDERS: ATTEND Urology | DX: C61 Malignant neoplasm of prostate (principal); N17.9 Acute kidney failure, unspecified ==

== ENCOUNTER → 2021-07-21 | Outpatient (CLI) | payer MEDICARE, OTHER | LOC: M ADAMS 08:31 | PROVIDERS: ATTEND Family Medicine | DX: E83.52 Hypercalcemia (principal); E78.5 Hyperlipidemia, unspecified; M10.9 Gout, unspecified ==

== ENCOUNTER → 2021-07-21 | Outpatient (CLI) | payer MEDICARE, OTHER | LOC: M LAB 09:29 | PROVIDERS: ATTEND Family Medicine | DX: E83.52 Hypercalcemia (principal); E78.5 Hyperlipidemia, unspecified; M10.9 Gout, unspecified ==

== ENCOUNTER → 2021-11-12 | Outpatient (REF) | payer MEDICARE, OTHER ==
[~2021-11-12] MED LIST changes: +LEVO1TAB39; -LEVO500T4
== END ==
LOC: M SFHCADAM 13:25
PROVIDERS: ATTEND Urology
DX: C61 Malignant neoplasm of prostate (principal)

== ENCOUNTER → 2022-03-06 | Outpatient (REF) | payer MEDICARE, OTHER | LOC: M SFHCADAM 08:56 | PROVIDERS: ATTEND Urology | DX: C61 Malignant neoplasm of prostate (principal) ==

== ENCOUNTER → 2022-06-17 | Outpatient (REF) | payer MEDICARE, OTHER | LOC: M LAB REF 11:31 | PROVIDERS: ATTEND Urology | DX: C61 Malignant neoplasm of prostate (principal) ==

== ENCOUNTER → 2022-08-25 | Outpatient (REF) | payer MEDICARE, OTHER ==
[2022-08-25 15:26] LABS: CHOLESTEROL RISK RATIO 3.32 (<5); HDL CHOLESTEROL 42.7 MG/DL (>40); LDL CHOLESTEROL 72.7 MG/DL (<100); NON-HDL-C 99.3 MG/DL
== END ==
LOC: M LABDRWAD 12:55
PROVIDERS: ATTEND Family Medicine
DX: E78.5 Hyperlipidemia, unspecified (principal); C61 Malignant neoplasm of prostate

== ENCOUNTER → 2022-08-29 | Outpatient (CLI) | payer MEDICARE, OTHER | LOC: M RAD 08:35 | PROVIDERS: ATTEND Nurse Practitioner Family | DX: M54.16 Radiculopathy, lumbar region (principal) ==

== ENCOUNTER → 2022-09-02 | Outpatient (CLI) | payer MEDICARE, OTHER | LOC: M WUC 08:48 | PROVIDERS: ATTEND Physician Assistant | DX: M76.52 Patellar tendinitis, left knee (principal) ==

== ENCOUNTER → 2023-01-07 | Outpatient (CLI) | payer MEDICARE, OTHER ==
[~2023-01-07] MED LIST changes: -CELE1CAP7 PO; +CELE1CAP99 PO
[2023-01-07 09:43] LABS: BASO % 0.7 % (0.0-1.0); EOS # 0.2 10^3/uL (0.0-0.5); EOS % 3.5 % (0.0-3.0); HEMATOCRIT 48.3 % (42.0-52.0); HEMOGLOBIN 16.7 g/dl (13.5-17.5); LYMPH # 1.5 10^3/uL (1.5-5.0); LYMPH % 34.4 % (24.0-44.0); MEAN CORPUSCULAR HGB CONC 34.6 g/dl (32.0-36.5); MEAN CORPUSCULAR VOLUME 95.5 fl (80.0-96.0); MONO # 0.4 10^3/uL (0.0-0.8); MONO % 10.1 % (2.0-8.0); NEUTROPHILS # 2.2 10^3/uL (1.5-8.5); NEUTROPHILS % 51.1 % (36.0-66.0); PLATELET COUNT, AUTOMATED 121 10^3/uL (150-450); RED BLOOD COUNT 5.06 10^6/uL (4.30-6.10); WHITE BLOOD COUNT 4.3 10^3/uL (4.0-10.0)
[2023-01-07 10:01] LABS: INR 1.14; PROTHROMBIN TIME 14.3 SECONDS (12.5-14.5)
[2023-01-07 10:14] LABS: BLOOD UREA NITROGEN 17 MG/DL (9-23); CALCIUM LEVEL 9.8 MG/DL (8.3-10.6); CARBON DIOXIDE LEVEL 27 MMOL/L (20-31); CHLORIDE LEVEL 106 MMOL/L (98-107); CREATININE FOR GFR 1.16 MG/DL (0.70-1.30); GLOMERULAR FILTRATION RATE > 60.0 (>42); GLUCOSE, FASTING 103 MG/DL (74-106); POTASSIUM SERUM 4.4 MMOL/L (3.5-5.1); SODIUM LEVEL 142 MMOL/L (136-145)
== END ==
LOC: M EKG 07:59
PROVIDERS: ATTEND Family Medicine
DX: Z01.818 Encounter for other preprocedural examination (principal); R00.1 Bradycardia, unspecified

== ENCOUNTER → 2023-01-07 | Outpatient (CLI) | payer MEDICARE, OTHER | LOC: M LAB 08:05 | PROVIDERS: ATTEND Urology | DX: Z01.818 Encounter for other preprocedural examination (principal); C61 Malignant neoplasm of prostate; R00.1 Bradycardia, unspecified ==

== ENCOUNTER → 2023-04-05 | Outpatient (REF) | payer MEDICARE, OTHER | LOC: M SFHCADAM 09:24 | PROVIDERS: ATTEND Urology | DX: C61 Malignant neoplasm of prostate (principal) ==

== ENCOUNTER → 2023-08-31 | Outpatient (REF) | payer MEDICARE, OTHER ==
[~2023-08-31] MED LIST changes: +THERTAB52 PO
== END ==
LOC: M LAB REF 17:12
PROVIDERS: ATTEND Internal Medicine Nephrology
DX: R80.9 Proteinuria, unspecified (principal); N39.0 Urinary tract infection, site not specified

== ENCOUNTER → 2023-09-20 | Outpatient (REF) | payer MEDICARE, OTHER ==
[2023-09-20 08:34] LABS: URIC ACID 7.4 MG/DL (3.7-9.2)
[2023-09-20 08:37] LABS: CHOLESTEROL RISK RATIO 3.01 (<5); HDL CHOLESTEROL 41.5 MG/DL (>40); LDL CHOLESTEROL 69.5 MG/DL (<100); NON-HDL-C 83.5 MG/DL
[2023-09-20 08:43] LABS: TOTAL 25(OH) VITAMIN D 66.4 NG/ML (20.0-100.0)
== END ==
LOC: M LAB REF 07:57
PROVIDERS: ATTEND Family Medicine
DX: M10.9 Gout, unspecified (principal); E55.9 Vitamin D deficiency, unspecified; E78.5 Hyperlipidemia, unspecified

== ENCOUNTER → 2023-09-30 | Outpatient (CLI) | payer MEDICARE, OTHER ==
[~2023-09-30] MED LIST changes: +PRED20TA
== END ==
LOC: M RAD 08:40
PROVIDERS: ATTEND Internal Medicine Nephrology
DX: N18.31 Chronic kidney disease, stage 3a (principal)

== ENCOUNTER → 2023-10-29 | Outpatient (CLI) | payer MEDICARE, OTHER | LOC: M ADAMS 10:03 | PROVIDERS: ATTEND Urology | DX: C61 Malignant neoplasm of prostate (principal) ==

== ENCOUNTER → 2024-02-08 | Outpatient (REF) | payer MEDICARE, OTHER ==
[~2024-02-08] MED LIST changes: +AMOX875T2
[2024-02-08 14:46] LABS: CHOLESTEROL RISK RATIO 3.03 (<5); HDL CHOLESTEROL 46.8 MG/DL (>40); LDL CHOLESTEROL 80.2 MG/DL (<100); NON-HDL-C 95.2 MG/DL
== END ==
LOC: M LABDRWAD 12:52
PROVIDERS: ATTEND Family Medicine
DX: E78.5 Hyperlipidemia, unspecified (principal)

== ENCOUNTER 2024-04-01 09:24 | Emergency (ER) | payer MEDICARE, OTHER ==
[~2024-04-01] VITALS: Ht 182.9 cm; Wt 115.9 kg
[2024-04-01] MEDS: ceFAZolin SOD 2 GM in IV 1 EA IV ONE (10:21)
[2024-04-01] MEDS: BOOSTRIX VACCINE (TETANUS/DIPHTH/ACEL. PERTUSSIS) 0.5ML SYR IM.IMMUN ONE (10:22)
[2024-04-01 10:25] LABS: BASO % 0.7 % (0.0-1.0); EOS # 0.2 10^3/uL (0.0-0.5); EOS % 3.8 % (0.0-3.0); HEMATOCRIT 45.9 % (42.0-52.0); HEMOGLOBIN 15.8 g/dl (13.5-17.5); LYMPH # 1.3 10^3/uL (1.5-5.0); LYMPH % 28.8 % (24.0-44.0); MEAN CORPUSCULAR HEMOGLOBIN 32.3 pg (27.0-33.0); MEAN CORPUSCULAR HGB CONC 34.4 g/dl (32.0-36.5); MEAN CORPUSCULAR VOLUME 93.9 fl (80.0-96.0); MONO # 0.4 10^3/uL (0.0-0.8); MONO % 7.9 % (2.0-8.0); NEUTROPHILS # 2.6 10^3/uL (1.5-8.5); NEUTROPHILS % 58.1 % (36.0-66.0); PLATELET COUNT, AUTOMATED 103 10^3/uL (150-450); RED BLOOD COUNT 4.89 10^6/uL (4.30-6.10); WHITE BLOOD COUNT 4.4 10^3/uL (4.0-10.0)
[2024-04-01 10:35] LABS: INR 1.08; PARTIAL THROMBOPLASTIN TIME 25.6 SECONDS (24.8-34.2); PROTHROMBIN TIME 14.3 SECONDS (12.5-14.5)
[2024-04-01 10:49] LABS: ALBUMIN 3.7 G/DL (3.2-5.2); BILIRUBIN,DIRECT 0.4 MG/DL (<0.4); CALCIUM LEVEL 9.9 MG/DL (8.3-10.6); CREATININE FOR GFR 1.28 MG/DL (0.70-1.30); GLOMERULAR FILTRATION RATE 58.5 (>42); POTASSIUM SERUM 4.3 MMOL/L (3.5-5.1); TOTAL PROTEIN 6.7 G/DL (5.7-8.2)
[2024-04-01] MEDS: LIDOCAINE 2% W/EPINEPHRINE 20ML VIAL **PRES FREE INJ ONE (11:30)
[2024-04-01] MEDS: ACETAMINOPHEN 325 MG TAB PO ONE (11:45)
[2024-04-01 11:46] VITALS: BP 131/82; O2SAT 96
[2024-04-01] MEDS ORDERED: CEPH500C PO (11:54)
[2024-04-01 12:05] VITALS: TEMP 97
== END 2024-04-01 12:06 | disposition home or self-care (01) ==
LOC: M ED 09:24
DX: S06.0X0A Concussion without loss of consciousness, initial encounter (principal); S01.81XA Laceration without foreign body of other part of head, initial encounter; Y92.019 Unspecified place in single-family (private) house as the place of occurrence of the external cause; Y93.9 Activity, unspecified; Y99.9 Unspecified external cause status; W10.8XXA Fall (on) (from) other stairs and steps, initial encounter; Z23 Encounter for immunization; Z79.2 Long term (current) use of antibiotics; Z79.810 Long term (current) use of selective estrogen receptor modulators (SERMs); Z79.899 Other long term (current) drug therapy
CPT/HCPCS: 12014; 70450; 70486; 71045; 72125; 73060; 73080; 80047; 80048; 80076; 85025; 85610; 85730; 86850; 86900; 86901; 90471; 90715; 93041; 94760; 96374; 99284; J0690

== ENCOUNTER → 2024-04-03 | Outpatient (REF) | payer MEDICARE, OTHER ==
[~2024-04-03] MED LIST changes: +CEPH500C PO
== END ==
LOC: M SFHCADAM 11:00
PROVIDERS: ATTEND Urology
DX: C61 Malignant neoplasm of prostate (principal)

== ENCOUNTER → 2024-09-11 | Outpatient (CLI) | payer MEDICARE ==
[~2024-09-11] MED LIST changes: +PRAV10TA PO; -PRAV10TA3; -PRAV10TA4 PO; +PRAV10TA43
== END ==
LOC: M LAB 08:09
PROVIDERS: ATTEND Nurse Practitioner Family
DX: C61 Malignant neoplasm of prostate (principal)

== ENCOUNTER → 2024-12-19 | Outpatient (REF) | payer MEDICARE | LOC: M LABDRWAD 13:24 | PROVIDERS: ATTEND Nurse Practitioner Family | DX: C61 Malignant neoplasm of prostate (principal) ==

== ENCOUNTER → 2025-01-17 | Outpatient (CLI) | payer MEDICARE ==
[~2025-01-17] MED LIST changes: +BICA50TA4 PO
== END ==
LOC: M ONCR 14:43
PROVIDERS: ATTEND General Practice
DX: C61 Malignant neoplasm of prostate (principal); Z79.899 Other long term (current) drug therapy; Z90.49 Acquired absence of other specified parts of digestive tract; Z90.79 Acquired absence of other genital organ(s)

== ENCOUNTER 2025-01-24 10:50 | Outpatient (RCR) | payer MEDICARE | END 2025-02-04 | LOC: M ONCR 10:50 | PROVIDERS: ATTEND General Practice | DX: Z51.0 Encounter for antineoplastic radiation therapy (principal); C61 Malignant neoplasm of prostate ==

== ENCOUNTER → 2025-02-06 | Outpatient (REF) | payer MEDICARE ==
[2025-02-06 14:32] LABS: CHOLESTEROL LEVEL 140.0 MG/DL (<200); CHOLESTEROL RISK RATIO 3.26 (<5); LDL CHOLESTEROL 79.7 MG/DL (<100); NON-HDL-C 97.1 MG/DL; TRIGLYCERIDES LEVEL 87.0 MG/DL (<150)
== END ==
LOC: M LABDRWAD 13:27
PROVIDERS: ATTEND Family Medicine
DX: E78.5 Hyperlipidemia, unspecified (principal)

== ENCOUNTER → 2025-02-14 | Outpatient (CLI) | payer MEDICARE ==
[2025-02-14] MEDS: LEUPROLIDE 45 MG SYRINGE KIT IM SCH (09:15)
== END ==
LOC: M ONCR 08:55
PROVIDERS: ATTEND General Practice
DX: C61 Malignant neoplasm of prostate (principal); Z79.811 Long term (current) use of aromatase inhibitors
CPT/HCPCS: 96402; J9217

== ENCOUNTER → 2025-03-07 | Outpatient (RCR) | payer MEDICARE | LOC: M ONCR 02-14 09:27 | PROVIDERS: ATTEND General Practice | DX: Z51.0 Encounter for antineoplastic radiation therapy (principal); C61 Malignant neoplasm of prostate ==